=== PATIENT | male | born 1970 | race Two or more races ===

== ENCOUNTER 2025-04-05 08:00 | Day surgery (SDC) | payer MEDICAID ==
[~2025-04-05] VITALS: Ht 167.6 cm; Wt 77.4 kg
[2025-04-05] VITALS (12 sets, daily range): BP systolic 86–103; BP diastolic 51–66; PULSE 35–49; RESP 11–16; TEMP 97.8; O2SAT 97–100
[2025-04-05] MEDS: ringers solution, lacted 1,000 ML IV SCH (05:30)
[~2025-04-05 08:00] MED LIST: ATOR20TA66 PO; FAMO20TA8 PO; LIDOcaine 2% (20mg/ml) 5ml vial ONE; simethicone 40mg/0.6ml oral drops 15ml ONE
[2025-04-05] MEDS ORDERED: midazolam 1 mg/ML 2ml injection ONE (10:45)
[2025-04-05] MEDS ORDERED: fentaNYL/PF 50MCG/1 ML 2ML syringe ONE (10:45)
[2025-04-05] MEDS ORDERED: propofol inj 20 ML IV ONE ×2 (10:49→10:52)
[2025-04-05] MEDS: glycopyrrolate 0.2mg/ml inj IV ONE (12:11)
== END 2025-04-05 13:05 | disposition home or self-care (01) ==
LOC: GI LAB 08:00
PROVIDERS: ATTEND Internal Medicine Gastroenterology
DX: Z12.11 Encounter for screening for malignant neoplasm of colon (principal); K63.5 Polyp of colon; K57.30 Diverticulosis of large intestine without perforation or abscess without bleeding; K64.8 Other hemorrhoids; K52.9 Noninfective gastroenteritis and colitis, unspecified; K21.9 Gastro-esophageal reflux disease without esophagitis; E78.5 Hyperlipidemia, unspecified; Z87.442 Personal history of urinary calculi
CPT/HCPCS: 45385; J2003; J2250; J2704; J3010; J3490; J7120; Z7512; A4620